=== PATIENT | female | born 1945 | race Caucasian/White ===

== ENCOUNTER 2017-11-13 10:33 | Inpatient (IN) | payer MEDICARE ==
[~2017-11-13] VITALS: Ht 165.1 cm; Wt 61.7 kg
[~2017-11-13 10:33] MED LIST: AMITRIPTYLINE H25 MG PO; ASPIRIN; ATIVAN0.5 MG PO; B COMPLEX1 TA1; BENZAMYCIN 5%-31 GEL; BENZTROPINE ME0.5 MG; BIOTENE DRY MOU DE; BIOTENE MOIST44.3 ML PO; CAFFEINE; CALCIUM CARBON500 M1 PO; CAP Z1 CRE; CAP Z1 CRE T; CARDIZEM30 MG PO; CEPHULAC10 GM/15 M PO; CHROMIUM GTF200 MCG PO; CHROMIUM200 MCG PO; CIPROFLOXACIN500 MG PO; COGENTIN0.5 MG PO; COLACE100 MG PO; CONSTULOSE10 GM/151 PO; COUMADIN3 M1 PO; COUMADIN4 M2 PO; Coumadin2 MG PO; Coumadin2.5 MG PO; Coumadin3 MG PO; ELAVIL25 MG PO; ERYTHROMYCIN; ESIDRIX25 MG PO; FANAPT2 MG PO; FLONASE0.05 MG/AC; HYDR12.5C; HYDROCHLOROTH12.5 MG; KLOR-CON SPRIN10 MEQ PO; KLOR-CON SPRINK8 MEQ PO; KLOR-CON/EF25 MEQ PO; LANOXIN0.125 MG PO; LANOXIN0.25 MG PO; LIDODERM 5% PATC1 EA PO; LISINOPRIL20 MG PO; LOPRESSOR100 MG PO; LOTREL 5 MG-101 CAP; MAALOX; MAALOX 225 MG/150 ML PO; MAALOX1 TAB; MAPAP325 MG PO; METOPROLOL SR50 MG PO; METOPROLOL TART50 M1 PO; METOPROLOL25 MG PO; MICRO-K 1010 MEQ PO; MIRALAX POWDER17 G1 PO; MIRAPEX ER0.375 MG PO; MIRAPEX PO; MIRAPEX0.125 MG PO; MIRAPEX0.25 MG PO; MUCINEX600 MG PO; MULTIPLE VITAMI1 TA2; MULTIVITAMIN &1 TAB PO; NEURONTIN300 MG; PHENERGAN25 M3 PO; PRADAXA150 MG PO; PROPAFENONE HC225 MG PO; QUETIAPINE FUMA50 M1 PO; THERA TABS1 TAB PO; TOPROL XL50 MG PO; TUMS 500500 MG PO; TYLEN; TYLENOL500 MG PO; VALIUM5 MG PO; VANQUISH PO; VITAMIN C1 TAB; VITAMIN D34000 UNIT PO; VITAMIN D5000 I3 PO; ZOFRAN ODT4 MG SL; [UNRECOGNIZED DRUG - OTHER] PO
[2017-11-13 10:39] VITALS: BP 126/66
[2017-11-13] MEDS ORDERED: DIGITEK250 MCG PO (10:49)
[2017-11-13] MEDS ORDERED: COUMADIN0.5 MG PO (10:49)
[2017-11-13] MEDS ORDERED: DIGOX125 MCG PO (10:50)
[2017-11-13] MEDS ORDERED: JANUVIA50 MG PO (10:51)
[2017-11-13] MEDS ORDERED: MELATONIN3 MG PO (10:52)
[2017-11-13] MEDS ORDERED: TOPROL XL25 MG PO (10:53)
[2017-11-13 11:05] LABS: BASO # 0.1 10*3/uL (0.0-0.1); BASO % 0.5 % (0.0-1.0); EOS % 0.2 % (1.0-4.0); HEMATOCRIT 40.7 % (37.0-47.0); HEMOGLOBIN 12.9 g/dl (12.0-16.0); LYMPH # 1.2 10*3/uL (1.3-4.4); LYMPH % 12.6 % (27.0-41.0); MEAN CORPUSCULAR HGB 28.5 pg (27.0-31.0); MEAN CORPUSCULAR HGB CONC 31.7 g/dl (33.0-37.0); MONO # 0.8 10*3/uL (0.1-1.0); MONO % 7.9 % (3.0-9.0); NEUT # 7.5 10*3/uL (2.3-7.9); NEUT % 78.3 % (47.0-73.0); PLATELET COUNT AUTOMATED 253 10*3/uL (130-400); RED BLOOD COUNT 4.52 10*6/uL (4.10-5.10); RED CELL DISTRI WIDTH 15.8 % (0-14.5); WHITE BLOOD COUNT 9.5 10*3/uL (4.8-10.8)
[2017-11-13 11:19] LABS: ALBUMIN 3.2 gm/dl (3.1-4.5); ALKALINE PHOSPHATASE 72 U/L (45-117); BUN 12 mg/dl (7-24); CHLORIDE 101 mmol/L (98-107); CREATININE 0.65 mg/dL (0.55-1.02); POTASSIUM 3.8 mmol/L (3.5-5.1); SGOT/AST 65 IU/L (3-35); SGPT/ALT 62 U/L (12-78); SODIUM 137 mmol/L (136-145)
[2017-11-13] MEDS ORDERED: MILK OF MA400 MG/51 PO (11:32)
[2017-11-13] MEDS ORDERED: MIRALAX119 GM PO (11:34)
[2017-11-13] MEDS ORDERED: MIRAPEX0.125 M1 PO (11:34)
[2017-11-13] MEDS ORDERED: NYSTATIN CREAM15 GM T (11:35)
[2017-11-13] MEDS ORDERED: POTASSIUM CHLO20 MEQ PO (11:35)
[2017-11-13] MEDS ORDERED: MULTIVITAMINS1 EAC5 PO (11:35)
[2017-11-13] MEDS ORDERED: TYLENOL325 M1 PO (11:36)
[2017-11-13] MEDS ORDERED: SEROQUEL25 MG PO (11:36)
[2017-11-13] MEDS ORDERED: VITAMIN D35000 UNIT PO (11:37)
[2017-11-13] MEDS ORDERED: ZYRTEC10 MG PO (11:37)
[2017-11-13 12:02] LABS: BILIRUBIN NEGATIVE (NEGATIVE); BLOOD 3+ (NEGATIVE); CLARITY CLOUDY (CLEAR); COLOR RED (YELLOW); GLUCOSE NEGATIVE (NEGATIVE); KETONE NEGATIVE (NEGATIVE); LEUKO ESTERASE 1+ (NEGATIVE); NITRITE NEGATIVE (NEGATIVE); PH 5.5 (5.0-9.0); UROBILINOGEN 0.2 E.U./dl (0.2-1.0)
[2017-11-13 12:10] VITALS: BP 120/60
[2017-11-13 12:24] LABS: BACTERIA 2+; RBC TNTC rbc/hpf (0-2); WBC TNTC wbc/hpf (0-5)
[2017-11-13 14:00] VITALS: BP 119/77
[2017-11-13 14:26] VITALS: BP 122/80
[2017-11-13 15:16] LABS: ACT PARTIAL THROMBO TIME 30.6 SECONDS (20.8-31.5); INTERNATIONAL NORM RATIO 1.9 (2.0-3.5)
[2017-11-13 16:00] VITALS: BP 106/83
[2017-11-13 20:00] VITALS: BP 146/89
[2017-11-14] VITALS: BP 117/68
[2017-11-14 06:01] LABS: BASO % 0.6 % (0.0-1.0); EOS # 0.1 10*3/uL (0.0-0.4); EOS % 0.8 % (1.0-4.0); HEMATOCRIT 37.8 % (37.0-47.0); HEMOGLOBIN 11.6 g/dl (12.0-16.0); LYMPH # 1.9 10*3/uL (1.3-4.4); LYMPH % 28.2 % (27.0-41.0); MEAN CORPUSCULAR HGB 28.8 pg (27.0-31.0); MEAN CORPUSCULAR HGB CONC 30.7 g/dl (33.0-37.0); MEAN PLATELET VOLUME 11.5 fl (9.6-12.3); MONO # 0.9 10*3/uL (0.1-1.0); MONO % 13.5 % (3.0-9.0); NEUT # 3.7 10*3/uL (2.3-7.9); NEUT % 56.3 % (47.0-73.0); PLATELET COUNT AUTOMATED 215 10*3/uL (130-400); RED BLOOD COUNT 4.03 10*6/uL (4.10-5.10); RED CELL DISTRI WIDTH 15.6 % (0-14.5); WHITE BLOOD COUNT 6.6 10*3/uL (4.8-10.8)
[2017-11-14 06:02] LABS: ALBUMIN 2.7 gm/dl (3.1-4.5); ALKALINE PHOSPHATASE 64 U/L (45-117); BUN 11 mg/dl (7-24); CHLORIDE 104 mmol/L (98-107); CHOLESTEROL 208 mg/dL (<200); CREATININE 0.54 mg/dL (0.55-1.02); HDL CHOLESTEROL 32 mg/dl (40-60); LDL CHOLESTEROL 109 mg/dL (9-159); PHOSPHOROUS 2.9 mg/dL (2.5-4.9); POTASSIUM 3.3 mmol/L (3.5-5.1); SGOT/AST 65 IU/L (3-35); SGPT/ALT 54 U/L (12-78); SODIUM 141 mmol/L (136-145); TOTAL PROTEIN 6.7 gm/dL (6.4-8.2); TRIGLYCERIDES 334 mg/dl (<150); VLDL CHOLESTEROL 67 mg/dL (6-40)
[2017-11-14 06:03] LABS: MEAN CELL VOLUME 93.8 fl (81.0-99.0)
[2017-11-14 06:12] LABS: INTERNATIONAL NORM RATIO 1.6 (2.0-3.5)
[2017-11-14 06:15] LABS: DIGOXIN 0.67 ng/ml (0.8-2.0); FREE T4 1.05 ng/dl (0.76-1.46); THYROID STIM HORMONE (HS) 0.948 uIU/ml (0.358-4.75)
[2017-11-14 08:00] VITALS: BP 119/57
[2017-11-14 08:47] LABS: VITAMIN D, 25-HYDROXY 36.5 ng/mL (30-100)
[2017-11-14 12:00] VITALS: BP 122/60
[2017-11-14 16:00] VITALS: BP 106/50
[2017-11-14 20:00] VITALS: BP 104/63
[2017-11-15] VITALS (7 sets, daily range): BP systolic 106–152; BP diastolic 65–95
[2017-11-15 06:24] LABS: BASO % 0.4 % (0.0-1.0); EOS # 0.1 10*3/uL (0.0-0.4); EOS % 1.3 % (1.0-4.0); HEMATOCRIT 37.8 % (37.0-47.0); HEMOGLOBIN 11.8 g/dl (12.0-16.0); LYMPH # 2.6 10*3/uL (1.3-4.4); LYMPH % 28.8 % (27.0-41.0); MEAN CELL VOLUME 93.1 fl (81.0-99.0); MEAN CORPUSCULAR HGB 29.1 pg (27.0-31.0); MEAN CORPUSCULAR HGB CONC 31.2 g/dl (33.0-37.0); MEAN PLATELET VOLUME 11.2 fl (9.6-12.3); MONO # 0.7 10*3/uL (0.1-1.0); MONO % 7.3 % (3.0-9.0); NEUT # 5.5 10*3/uL (2.3-7.9); NEUT % 61.9 % (47.0-73.0); PLATELET COUNT AUTOMATED 235 10*3/uL (130-400); RED BLOOD COUNT 4.06 10*6/uL (4.10-5.10); RED CELL DISTRI WIDTH 15.6 % (0-14.5); WHITE BLOOD COUNT 8.9 10*3/uL (4.8-10.8)
[2017-11-15 06:30] LABS: ALBUMIN 2.8 gm/dl (3.1-4.5); ALKALINE PHOSPHATASE 65 U/L (45-117); BUN 9 mg/dl (7-24); CHLORIDE 106 mmol/L (98-107); CREATININE 0.47 mg/dL (0.55-1.02); POTASSIUM 3.5 mmol/L (3.5-5.1); SGOT/AST 58 IU/L (3-35); SGPT/ALT 54 U/L (12-78); SODIUM 142 mmol/L (136-145); TOTAL PROTEIN 6.9 gm/dL (6.4-8.2)
[2017-11-15 06:34] LABS: TROPONIN I 0.122 ng/ml (<0.045)
[2017-11-16] VITALS: BP 145/72
[2017-11-16] MEDS ORDERED: BENGAY VANISHIN57 GM T (02:11)
[2017-11-16] MEDS ORDERED: CALCIUM500 M1 PO (02:12)
[2017-11-16] MEDS ORDERED: LACTULOSE20 GM/30 M PO (02:16)
[2017-11-16] MEDS ORDERED: METOPROLOL25 MG PO (02:19)
[2017-11-16] MEDS ORDERED: MIRALAX POWDER17 G1 PO (02:20)
[2017-11-16 07:42] LABS: BASO % 0.3 % (0.0-1.0); EOS # 0.1 10*3/uL (0.0-0.4); EOS % 1.5 % (1.0-4.0); HEMATOCRIT 37.5 % (37.0-47.0); HEMOGLOBIN 11.5 g/dl (12.0-16.0); LYMPH # 2.1 10*3/uL (1.3-4.4); LYMPH % 21.4 % (27.0-41.0); MEAN CELL VOLUME 92.4 fl (81.0-99.0); MEAN CORPUSCULAR HGB 28.3 pg (27.0-31.0); MEAN CORPUSCULAR HGB CONC 30.7 g/dl (33.0-37.0); MEAN PLATELET VOLUME 11.9 fl (9.6-12.3); MONO # 0.7 10*3/uL (0.1-1.0); MONO % 6.8 % (3.0-9.0); NEUT # 6.7 10*3/uL (2.3-7.9); NEUT % 69.7 % (47.0-73.0); PLATELET COUNT AUTOMATED 255 10*3/uL (130-400); RED BLOOD COUNT 4.06 10*6/uL (4.10-5.10); RED CELL DISTRI WIDTH 15.6 % (0-14.5); WHITE BLOOD COUNT 9.6 10*3/uL (4.8-10.8)
[2017-11-16 07:46] LABS: INTERNATIONAL NORM RATIO 2.1 (2.0-3.5)
[2017-11-16 08:00] VITALS: BP 144/53
[2017-11-16 08:12] LABS: ALBUMIN 2.7 gm/dl (3.1-4.5); ALKALINE PHOSPHATASE 66 U/L (45-117); BUN 6 mg/dl (7-24); CHLORIDE 106 mmol/L (98-107); CREATININE 0.42 mg/dL (0.55-1.02); POTASSIUM 3.4 mmol/L (3.5-5.1); SGOT/AST 55 IU/L (3-35); SGPT/ALT 51 U/L (12-78); SODIUM 143 mmol/L (136-145); TOTAL PROTEIN 6.7 gm/dL (6.4-8.2)
[2017-11-16 12:00] VITALS: BP 115/57
[2017-11-16 16:00] VITALS: BP 132/74
[2017-11-16 20:00] VITALS: BP 142/65
[2017-11-17] VITALS: BP 137/83
[2017-11-17 07:17] LABS: INTERNATIONAL NORM RATIO 3.4 (2.0-3.5)
[2017-11-17 08:00] VITALS: BP 139/59
[2017-11-17 12:00] VITALS: BP 120/52
[2017-11-17] MEDS ORDERED: TOPROL XL50 M1 PO (12:27)
[2017-11-17] MEDS ORDERED: TAMIFLU 75MG CA75 MG PO (12:27)
[2017-11-17] MEDS ORDERED: COUMADIN7.5 M1 PO (12:27)
[2017-11-17 16:00] VITALS: BP 132/88
== END 2017-11-17 16:35 | disposition other institution (70) | DRG 871 ==
LOC: ED 10:33 → 5E 13:26 → EDHOLD 13:26 → 5E 13:39
PROVIDERS: Emergency Medicine; Family Medicine; Internal Medicine; Registered Nurse; Student in an Organized Health Care Education/Training Program
DX: A41.9 Sepsis, unspecified organism (principal); E43 Unspecified severe protein-calorie malnutrition; I48.2 Chronic atrial fibrillation; G20 Parkinson's disease; F02.80 Dementia in other diseases classified elsewhere, unspecified severity, without behavioral disturbance, psychotic disturbance, mood disturbance, and anxiety; N30.01 Acute cystitis with hematuria; R65.20 Severe sepsis without septic shock; J10.1 Influenza due to other identified influenza virus with other respiratory manifestations; R73.9 Hyperglycemia, unspecified; E87.6 Hypokalemia; M19.90 Unspecified osteoarthritis, unspecified site; D72.810 Lymphocytopenia; M25.562 Pain in left knee; M25.561 Pain in right knee; G89.29 Other chronic pain; M54.9 Dorsalgia, unspecified; E78.1 Pure hyperglyceridemia; B95.2 Enterococcus as the cause of diseases classified elsewhere; E78.00 Pure hypercholesterolemia, unspecified; Z82.49 Family history of ischemic heart disease and other diseases of the circulatory system; Z84.1 Family history of disorders of kidney and ureter; Z88.6 Allergy status to analgesic agent; Z88.1 Allergy status to other antibiotic agents; Z88.2 Allergy status to sulfonamides; Z88.8 Allergy status to other drugs, medicaments and biological substances; Z79.899 Other long term (current) drug therapy; Z80.9 Family history of malignant neoplasm, unspecified; Z87.891 Personal history of nicotine dependence; Z79.01 Long term (current) use of anticoagulants; Z87.19 Personal history of other diseases of the digestive system; Z68.22 Body mass index [BMI] 22.0-22.9, adult

== ENCOUNTER 2018-02-09 16:26 | Inpatient (IN) | payer MEDICARE ==
[~2018-02-09] VITALS: Ht 149.8 cm; Wt 61.8 kg
[~2018-02-09 16:26] MED LIST changes: +BENGAY VANISHIN57 GM T; +CALCIUM500 M1 PO; +COUMADIN0.5 MG PO; +COUMADIN7.5 M1 PO; +DIGITEK250 MCG PO; +DIGOX125 MCG PO; +JANUVIA50 MG PO; +LACTULOSE20 GM/30 M PO; +MELATONIN3 MG PO; +MILK OF MA400 MG/51 PO; +MIRALAX119 GM PO; +MIRAPEX0.125 M1 PO; +MULTIVITAMINS1 EAC5 PO; +NYSTATIN CREAM15 GM T; +POTASSIUM CHLO20 MEQ PO; +SEROQUEL25 MG PO; +TAMIFLU 75MG CA75 MG PO; +TOPROL XL25 MG PO; +TOPROL XL50 M1 PO; +TYLENOL325 M1 PO; +VITAMIN D35000 UNIT PO; +ZYRTEC10 MG PO
[2018-02-09 16:29] VITALS: BP 116/80
[2018-02-09 17:17] LABS: BASO # 0.1 10*3/uL (0.0-0.1); BASO % 0.4 % (0.0-1.0); EOS # 0.1 10*3/uL (0.0-0.4); EOS % 0.5 % (1.0-4.0); HEMATOCRIT 42.4 % (37.0-47.0); HEMOGLOBIN 13.2 g/dl (12.0-16.0); LYMPH # 2.5 10*3/uL (1.3-4.4); LYMPH % 12.3 % (27.0-41.0); MEAN CELL VOLUME 90.2 fl (81.0-99.0); MEAN CORPUSCULAR HGB 28.1 pg (27.0-31.0); MEAN CORPUSCULAR HGB CONC 31.1 g/dl (33.0-37.0); MEAN PLATELET VOLUME 11.3 fl (9.6-12.3); MONO # 1.4 10*3/uL (0.1-1.0); MONO % 6.7 % (3.0-9.0); NEUT # 16.1 10*3/uL (2.3-7.9); NEUT % 79.6 % (47.0-73.0); PLATELET COUNT AUTOMATED 306 10*3/uL (130-400); RED CELL DISTRI WIDTH 15.8 % (0-14.5); WHITE BLOOD COUNT 20.3 10*3/uL (4.8-10.8)
[2018-02-09 17:26] LABS: ACT PARTIAL THROMBO TIME 25.6 SECONDS (20.8-31.5); INTERNATIONAL NORM RATIO 1.7 (2.0-3.5)
[2018-02-09 17:39] LABS: ALBUMIN 3.2 gm/dl (3.1-4.5); ALKALINE PHOSPHATASE 75 U/L (45-117); BUN 11 mg/dl (7-24); CHLORIDE 106 mmol/L (98-107); CREATININE 0.63 mg/dL (0.55-1.02); SGOT/AST 32 IU/L (3-35); SGPT/ALT 37 U/L (12-78); SODIUM 140 mmol/L (136-145); TOTAL PROTEIN 7.6 gm/dL (6.4-8.2)
[2018-02-09 17:53] LABS: TROPONIN I 0.033 ng/ml (<0.045)
[2018-02-09 17:55] LABS: BILIRUBIN NEGATIVE (NEGATIVE); BLOOD TRACE-INTACT (NEGATIVE); CLARITY CLEAR (CLEAR); COLOR YELLOW (YELLOW); GLUCOSE NEGATIVE (NEGATIVE); KETONE TRACE (NEGATIVE); LEUKO ESTERASE 1+ (NEGATIVE); NITRITE NEGATIVE (NEGATIVE); PH 5.5 (5.0-9.0); SPECIFIC GRAVITY 1.025 (1.005-1.030); UROBILINOGEN 0.2 E.U./dl (0.2-1.0)
[2018-02-09 18:02] LABS: BACTERIA 1+; EPITHELIAL CELLS 0-2; WBC 31-40 wbc/hpf (0-5)
[2018-02-09 18:15] VITALS: BP 108/80
[2018-02-09 20:15] VITALS: BP 114/58
[2018-02-09] MEDS ORDERED: TUMS200 MG PO (20:42)
[2018-02-09] MEDS ORDERED: COUMADIN3 M1 PO (20:53)
[2018-02-10] VITALS: BP 106/52
[2018-02-10 06:34] LABS: BASO # 0.1 10*3/uL (0.0-0.1); BASO % 0.3 % (0.0-1.0); EOS % 0.1 % (1.0-4.0); HEMATOCRIT 41.3 % (37.0-47.0); HEMOGLOBIN 12.6 g/dl (12.0-16.0); LYMPH % 9.5 % (27.0-41.0); MEAN CORPUSCULAR HGB 27.8 pg (27.0-31.0); MEAN CORPUSCULAR HGB CONC 30.5 g/dl (33.0-37.0); MEAN PLATELET VOLUME 11.8 fl (9.6-12.3); MONO # 1.2 10*3/uL (0.1-1.0); MONO % 5.6 % (3.0-9.0); NEUT # 17.9 10*3/uL (2.3-7.9); NEUT % 84.1 % (47.0-73.0); PLATELET COUNT AUTOMATED 298 10*3/uL (130-400); RED BLOOD COUNT 4.54 10*6/uL (4.10-5.10); RED CELL DISTRI WIDTH 15.7 % (0-14.5); WHITE BLOOD COUNT 21.3 10*3/uL (4.8-10.8)
[2018-02-10 07:02] LABS: INTERNATIONAL NORM RATIO 1.5 (2.0-3.5)
[2018-02-10 07:03] LABS: ALBUMIN 2.9 gm/dl (3.1-4.5); ALKALINE PHOSPHATASE 69 U/L (45-117); BUN 8 mg/dl (7-24); CHLORIDE 108 mmol/L (98-107); CHOLESTEROL 205 mg/dL (<200); CREATININE 0.51 mg/dL (0.55-1.02); FREE T4 1.09 ng/dl (0.76-1.46); HDL CHOLESTEROL 34 mg/dl (40-60); LDL CHOLESTEROL 136 mg/dL (9-159); PHOSPHOROUS 2.1 mg/dL (2.5-4.9); POTASSIUM 3.4 mmol/L (3.5-5.1); SGOT/AST 23 IU/L (3-35); SGPT/ALT 30 U/L (12-78); SODIUM 142 mmol/L (136-145); TOTAL PROTEIN 7.3 gm/dL (6.4-8.2); TRIGLYCERIDES 177 mg/dl (<150); VLDL CHOLESTEROL 35 mg/dL (6-40)
[2018-02-10 07:08] LABS: THYROID STIM HORMONE (HS) 0.517 uIU/ml (0.358-4.75)
[2018-02-10 08:00] VITALS: BP 126/72
[2018-02-10 12:00] VITALS: BP 98/50
[2018-02-10 16:00] VITALS: BP 106/55
[2018-02-10 20:00] VITALS: BP 92/60
[2018-02-11] VITALS: BP 125/61
[2018-02-11 07:42] LABS: BASO # 0.1 10*3/uL (0.0-0.1); BASO % 0.5 % (0.0-1.0); EOS # 0.4 10*3/uL (0.0-0.4); EOS % 2.2 % (1.0-4.0); LYMPH # 2.6 10*3/uL (1.3-4.4); LYMPH % 15.9 % (27.0-41.0); MEAN CELL VOLUME 92.3 fl (81.0-99.0); MEAN CORPUSCULAR HGB 27.9 pg (27.0-31.0); MEAN CORPUSCULAR HGB CONC 30.2 g/dl (33.0-37.0); MEAN PLATELET VOLUME 11.3 fl (9.6-12.3); MONO # 0.8 10*3/uL (0.1-1.0); NEUT # 12.3 10*3/uL (2.3-7.9); PLATELET COUNT AUTOMATED 227 10*3/uL (130-400); RED BLOOD COUNT 3.77 10*6/uL (4.10-5.10); RED CELL DISTRI WIDTH 15.8 % (0-14.5); WHITE BLOOD COUNT 16.1 10*3/uL (4.8-10.8)
[2018-02-11 07:48] LABS: HEMATOCRIT 34.8 % (37.0-47.0); HEMOGLOBIN 10.5 g/dl (12.0-16.0)
[2018-02-11 07:57] LABS: ALBUMIN 2.5 gm/dl (3.1-4.5); ALKALINE PHOSPHATASE 62 U/L (45-117); BUN 7 mg/dl (7-24); CHLORIDE 110 mmol/L (98-107); CREATININE 0.47 mg/dL (0.55-1.02); POTASSIUM 3.6 mmol/L (3.5-5.1); SGOT/AST 26 IU/L (3-35); SGPT/ALT 26 U/L (12-78); SODIUM 141 mmol/L (136-145); TOTAL PROTEIN 6.4 gm/dL (6.4-8.2)
[2018-02-11 08:00] VITALS: BP 128/54
[2018-02-11 08:09] LABS: INTERNATIONAL NORM RATIO 1.6 (2.0-3.5)
[2018-02-11 12:00] VITALS: BP 128/64
[2018-02-11] MEDS ORDERED: COUMADIN4 M2 PO (13:28)
== END 2018-02-11 16:24 | DRG 872 ==
LOC: ED 16:26 → EDHOLD 17:55 → 4E 17:55
PROVIDERS: Emergency Medicine; Internal Medicine
DX: A41.9 Sepsis, unspecified organism (principal); E87.2 Acidosis; E87.8 Other disorders of electrolyte and fluid balance, not elsewhere classified; E83.39 Other disorders of phosphorus metabolism; I48.2 Chronic atrial fibrillation; N39.0 Urinary tract infection, site not specified; F02.80 Dementia in other diseases classified elsewhere, unspecified severity, without behavioral disturbance, psychotic disturbance, mood disturbance, and anxiety; E87.6 Hypokalemia; G31.83 Neurocognitive disorder with Lewy bodies; D72.821 Monocytosis (symptomatic); M15.9 Polyosteoarthritis, unspecified; E78.1 Pure hyperglyceridemia; E78.00 Pure hypercholesterolemia, unspecified; Z66 Do not resuscitate; Z51.5 Encounter for palliative care; H26.9 Unspecified cataract; E66.3 Overweight; R73.9 Hyperglycemia, unspecified; R65.20 Severe sepsis without septic shock; Z79.899 Other long term (current) drug therapy; Z79.01 Long term (current) use of anticoagulants; Z88.1 Allergy status to other antibiotic agents; Z88.2 Allergy status to sulfonamides; Z88.8 Allergy status to other drugs, medicaments and biological substances; Z82.49 Family history of ischemic heart disease and other diseases of the circulatory system; Z80.51 Family history of malignant neoplasm of kidney; Z80.9 Family history of malignant neoplasm, unspecified; Z87.19 Personal history of other diseases of the digestive system; Z68.27 Body mass index [BMI] 27.0-27.9, adult

== ENCOUNTER 2018-09-15 12:42 | Inpatient (IN) | payer MEDICARE ==
[~2018-09-15] VITALS: Ht 165.1 cm; Wt 57.6 kg
--- NOTE | ~2018-09-15 | EKG ---
[place], [place] ELECTROCARDIOGRAM REPORT NAME: JULIANA MAHER UNIT #: [id number] ROOM: 522 DOCTOR: MILES DRAFT REPORT BIRTHDATE: [birth year] [facility] Test Date: 2018-09-15 Test Time: 14:07:07 Pat Name: JULIANA MAHER Department: Room: 522 Gender: F Electroplating Laborer: : 1945 Requested By: CHAYA CAROLINA Order Number: [id number] Reading MD: Jaron Hicks MD Measurements Intervals [place] Rate: 91 P: NC: QRS: -10 QRSD: 86 T: -83 QT: 361 QTc: 445 Interpretive Statements Atrial fibrillation Nonspecific repol abnormality, diffuse leads No previous ECG available for comparison Electronically Signed On 09-16-2018 16:39:01 PST by Jaron Hicks MD CM:EKGRPT:ELECTROCARDIOGRAM REPORT [id number] CHAYA AQUINO DRAFT REPORT CHAYA CAROLINA MD
[2018-09-15 12:42] VITALS: BP 134/56
[~2018-09-15 12:42] MED LIST changes: +TUMS200 MG PO
[2018-09-15 13:27] LABS: BASO # 0.1 10*3/uL (0.0-0.1); BASO % 0.5 % (0.0-1.0); EOS # 0.3 10*3/uL (0.0-0.4); EOS % 1.8 % (1.0-4.0); HEMATOCRIT 46.3 % (37.0-47.0); HEMOGLOBIN 14.3 g/dl (12.0-16.0); LYMPH # 1.3 10*3/uL (1.3-4.4); MEAN CELL VOLUME 92.8 fl (81.0-99.0); MEAN CORPUSCULAR HGB 28.7 pg (27.0-31.0); MEAN CORPUSCULAR HGB CONC 30.9 g/dl (33.0-37.0); MEAN PLATELET VOLUME 11.4 fl (9.6-12.3); MONO # 0.6 10*3/uL (0.1-1.0); MONO % 4.1 % (3.0-9.0); NEUT # 11.7 10*3/uL (2.3-7.9); NEUT % 84.1 % (47.0-73.0); PLATELET COUNT AUTOMATED 311 10*3/uL (130-400); RED BLOOD COUNT 4.99 10*6/uL (4.10-5.10); RED CELL DISTRI WIDTH 15.2 % (0-14.5); WHITE BLOOD COUNT 13.9 10*3/uL (4.8-10.8)
[2018-09-15 13:45] LABS: ALBUMIN 3.5 gm/dl (3.1-4.5); BUN 13 mg/dl (7-24); CHLORIDE 103 mmol/L (98-107); CREATININE 0.63 mg/dL (0.55-1.02); POTASSIUM 4.3 mmol/L (3.5-5.1); SGOT/AST 22 IU/L (3-35); SGPT/ALT 30 U/L (12-78); SODIUM 139 mmol/L (136-145); TOTAL PROTEIN 8.3 gm/dL (6.4-8.2)
[2018-09-15 13:46] LABS: ALKALINE PHOSPHATASE 88 U/L (45-117)
[2018-09-15 14:45] LABS: BILIRUBIN NEGATIVE (NEGATIVE); BLOOD 3+ (NEGATIVE); CLARITY CLOUDY (CLEAR); COLOR YELLOW (YELLOW); GLUCOSE NEGATIVE (NEGATIVE); KETONE NEGATIVE (NEGATIVE); LEUKO ESTERASE 3+ (NEGATIVE); NITRITE POSITIVE (NEGATIVE); SPECIFIC GRAVITY 1.015 (1.005-1.030); UROBILINOGEN 0.2 E.U./dl (0.2-1.0)
[2018-09-15 14:52] LABS: WBC TNTC wbc/hpf (0-5)
[2018-09-15 16:27] VITALS: BP 109/60
[2018-09-15 16:37] LABS: INTERNATIONAL NORM RATIO 1.8 (2.0-3.5)
[2018-09-15 17:05] VITALS: BP 128/61
[2018-09-15 20:00] VITALS: BP 121/82
[2018-09-16] VITALS: BP 154/79
[2018-09-16 07:13] LABS: BASO # 0.1 10*3/uL (0.0-0.1); BASO % 0.7 % (0.0-1.0); EOS # 0.2 10*3/uL (0.0-0.4); EOS % 1.7 % (1.0-4.0); HEMATOCRIT 41.1 % (37.0-47.0); HEMOGLOBIN 12.7 g/dl (12.0-16.0); LYMPH # 1.2 10*3/uL (1.3-4.4); LYMPH % 11.2 % (27.0-41.0); MEAN CORPUSCULAR HGB 28.7 pg (27.0-31.0); MEAN CORPUSCULAR HGB CONC 30.9 g/dl (33.0-37.0); MEAN PLATELET VOLUME 12.3 fl (9.6-12.3); MONO # 0.8 10*3/uL (0.1-1.0); NEUT # 8.6 10*3/uL (2.3-7.9); NEUT % 78.9 % (47.0-73.0); PLATELET COUNT AUTOMATED 258 10*3/uL (130-400); RED BLOOD COUNT 4.42 10*6/uL (4.10-5.10); RED CELL DISTRI WIDTH 15.4 % (0-14.5); WHITE BLOOD COUNT 10.9 10*3/uL (4.8-10.8)
[2018-09-16 07:41] LABS: BUN 10 mg/dl (7-24); CHLORIDE 105 mmol/L (98-107); CREATININE 0.55 mg/dL (0.55-1.02); PHOSPHOROUS 2.9 mg/dL (2.5-4.9); POTASSIUM 3.8 mmol/L (3.5-5.1); SODIUM 139 mmol/L (136-145)
[2018-09-16 07:51] LABS: FREE T4 0.99 ng/dl (0.76-1.46); THYROID STIM HORMONE (HS) 0.684 uIU/ml (0.358-4.75)
[2018-09-16 08:00] VITALS: BP 126/68
[2018-09-16 11:43] VITALS: BP 128/64
[2018-09-16 12:00] VITALS: BP 132/70
[2018-09-16 16:00] VITALS: BP 145/86
[2018-09-16 20:00] VITALS: BP 135/74
[2018-09-17] VITALS: BP 150/51
[2018-09-17 07:34] LABS: BASO # 0.1 10*3/uL (0.0-0.1); BASO % 0.6 % (0.0-1.0); EOS # 0.3 10*3/uL (0.0-0.4); HEMATOCRIT 39.4 % (37.0-47.0); HEMOGLOBIN 12.4 g/dl (12.0-16.0); LYMPH # 1.6 10*3/uL (1.3-4.4); LYMPH % 11.8 % (27.0-41.0); MEAN CELL VOLUME 92.1 fl (81.0-99.0); MEAN CORPUSCULAR HGB CONC 31.5 g/dl (33.0-37.0); MEAN PLATELET VOLUME 12.1 fl (9.6-12.3); MONO # 1.1 10*3/uL (0.1-1.0); MONO % 7.9 % (3.0-9.0); NEUT # 10.3 10*3/uL (2.3-7.9); NEUT % 77.2 % (47.0-73.0); PLATELET COUNT AUTOMATED 234 10*3/uL (130-400); RED BLOOD COUNT 4.28 10*6/uL (4.10-5.10); RED CELL DISTRI WIDTH 15.5 % (0-14.5); WHITE BLOOD COUNT 13.3 10*3/uL (4.8-10.8)
[2018-09-17 07:48] LABS: ALBUMIN 2.8 gm/dl (3.1-4.5); ALKALINE PHOSPHATASE 68 U/L (45-117); BUN 7 mg/dl (7-24); CHLORIDE 109 mmol/L (98-107); POTASSIUM 3.7 mmol/L (3.5-5.1); SGOT/AST 38 IU/L (3-35); SGPT/ALT 33 U/L (12-78); SODIUM 140 mmol/L (136-145)
[2018-09-17 08:11] LABS: INTERNATIONAL NORM RATIO 1.3 (2.0-3.5)
[2018-09-17 12:00] VITALS: BP 135/66
[2018-09-17 16:00] VITALS: BP 160/84
[2018-09-17 20:00] VITALS: BP 156/80
[2018-09-18] VITALS: BP 160/91
[2018-09-18 07:11] LABS: BASO # 0.1 10*3/uL (0.0-0.1); BASO % 0.5 % (0.0-1.0); EOS # 0.6 10*3/uL (0.0-0.4); EOS % 5.1 % (1.0-4.0); HEMATOCRIT 39.1 % (37.0-47.0); HEMOGLOBIN 11.8 g/dl (12.0-16.0); LYMPH # 2.6 10*3/uL (1.3-4.4); LYMPH % 23.8 % (27.0-41.0); MEAN CELL VOLUME 93.1 fl (81.0-99.0); MEAN CORPUSCULAR HGB 28.1 pg (27.0-31.0); MEAN CORPUSCULAR HGB CONC 30.2 g/dl (33.0-37.0); MEAN PLATELET VOLUME 12.1 fl (9.6-12.3); MONO # 1.1 10*3/uL (0.1-1.0); NEUT # 6.6 10*3/uL (2.3-7.9); NEUT % 60.3 % (47.0-73.0); PLATELET COUNT AUTOMATED 232 10*3/uL (130-400); RED CELL DISTRI WIDTH 15.4 % (0-14.5); WHITE BLOOD COUNT 10.9 10*3/uL (4.8-10.8)
[2018-09-18 07:21] LABS: BUN 6 mg/dl (7-24); CHLORIDE 111 mmol/L (98-107); CREATININE 0.36 mg/dL (0.55-1.02); POTASSIUM 3.4 mmol/L (3.5-5.1); SODIUM 144 mmol/L (136-145)
[2018-09-18 07:56] LABS: INTERNATIONAL NORM RATIO 1.6 (2.0-3.5)
[2018-09-18 08:00] VITALS: BP 126/62
[2018-09-18 12:00] VITALS: BP 121/60
[2018-09-18 16:00] VITALS: BP 131/77
[2018-09-18 20:00] VITALS: BP 128/82
[2018-09-19] VITALS: BP 135/67
[2018-09-19 07:43] LABS: BASO # 0.1 10*3/uL (0.0-0.1); BASO % 0.6 % (0.0-1.0); EOS # 0.7 10*3/uL (0.0-0.4); EOS % 4.8 % (1.0-4.0); HEMATOCRIT 38.2 % (37.0-47.0); HEMOGLOBIN 12.1 g/dl (12.0-16.0); LYMPH # 2.6 10*3/uL (1.3-4.4); LYMPH % 19.3 % (27.0-41.0); MEAN CELL VOLUME 91.8 fl (81.0-99.0); MEAN CORPUSCULAR HGB 29.1 pg (27.0-31.0); MEAN CORPUSCULAR HGB CONC 31.7 g/dl (33.0-37.0); MEAN PLATELET VOLUME 11.3 fl (9.6-12.3); MONO % 7.3 % (3.0-9.0); NEUT # 9.2 10*3/uL (2.3-7.9); NEUT % 67.6 % (47.0-73.0); PLATELET COUNT AUTOMATED 262 10*3/uL (130-400); RED BLOOD COUNT 4.16 10*6/uL (4.10-5.10); WHITE BLOOD COUNT 13.7 10*3/uL (4.8-10.8)
[2018-09-19 07:55] LABS: BUN 6 mg/dl (7-24); CHLORIDE 109 mmol/L (98-107); POTASSIUM 3.4 mmol/L (3.5-5.1); SODIUM 142 mmol/L (136-145)
[2018-09-19 08:00] VITALS: BP 162/70
[2018-09-19 12:00] VITALS: BP 121/51
[2018-09-19] MEDS ORDERED: COUMADIN5 M2 PO (15:12)
[2018-09-19] MEDS ORDERED: ZYVOX600 MG PO (15:12)
== END 2018-09-19 17:04 | DRG 871 ==
LOC: ED 12:42 → EDHOLD 14:57 → 5E 14:57
PROVIDERS: Emergency Medicine; Family Medicine; Student in an Organized Health Care Education/Training Program
DX: A41.9 Sepsis, unspecified organism (principal); G93.41 Metabolic encephalopathy; F02.81 Dementia in other diseases classified elsewhere, unspecified severity, with behavioral disturbance; N30.00 Acute cystitis without hematuria; G31.83 Neurocognitive disorder with Lewy bodies; R74.8 Abnormal levels of other serum enzymes; F02.80 Dementia in other diseases classified elsewhere, unspecified severity, without behavioral disturbance, psychotic disturbance, mood disturbance, and anxiety; M19.90 Unspecified osteoarthritis, unspecified site; Z66 Do not resuscitate; Z51.5 Encounter for palliative care; I48.91 Unspecified atrial fibrillation; E11.65 Type 2 diabetes mellitus with hyperglycemia; B95.62 Methicillin resistant Staphylococcus aureus infection as the cause of diseases classified elsewhere; E78.1 Pure hyperglyceridemia; R79.1 Abnormal coagulation profile; R65.20 Severe sepsis without septic shock; Z88.4 Allergy status to anesthetic agent; Z88.1 Allergy status to other antibiotic agents; Z88.2 Allergy status to sulfonamides; Z87.440 Personal history of urinary (tract) infections; Z88.8 Allergy status to other drugs, medicaments and biological substances; Z87.442 Personal history of urinary calculi; Z87.891 Personal history of nicotine dependence; Z82.49 Family history of ischemic heart disease and other diseases of the circulatory system; Z84.1 Family history of disorders of kidney and ureter; Z80.9 Family history of malignant neoplasm, unspecified; Z79.899 Other long term (current) drug therapy; Z79.01 Long term (current) use of anticoagulants

== ENCOUNTER 2020-05-15 15:33 | Emergency (ER) | payer MEDICARE ==
[~2020-05-15 15:33] MED LIST changes: +BENGAY GREASELE57 GM T; -BENGAY VANISHIN57 GM T; +COUMADIN5 M2 PO; +METOPROLOL SUCC50 M1 PO; +PAXIL10 MG PO; +RESOURCE 2.0 2237 ML PO; +ZESTRIL10 MG PO; +ZYVOX600 MG PO
[2020-05-15 16:00] LABS: BASO # 0.1 10*3/uL (0.0-0.1); BASO % 0.4 % (0.0-1.0); EOS # 0.3 10*3/uL (0.0-0.4); HEMATOCRIT 40.8 % (37.0-47.0); LYMPH # 1.2 10*3/uL (1.3-4.4); MEAN CELL VOLUME 91.7 fl (81.0-99.0); MEAN CORPUSCULAR HGB 27.9 pg (27.0-31.0); MEAN CORPUSCULAR HGB CONC 30.4 g/dl (33.0-37.0); MEAN PLATELET VOLUME 10.8 fl (9.6-12.3); MONO # 0.6 10*3/uL (0.1-1.0); MONO % 4.1 % (3.0-9.0); NEUT # 11.4 10*3/uL (2.3-7.9); NEUT % 84.2 % (47.0-73.0); PLATELET COUNT AUTOMATED 457 10*3/uL (130-400); RED BLOOD COUNT 4.45 10*6/uL (4.10-5.10); WHITE BLOOD COUNT 13.5 10*3/uL (4.8-10.8)
[2020-05-15 16:11] LABS: ACT PARTIAL THROMBO TIME 33.7 SECONDS (20.0-32.1); INTERNATIONAL NORM RATIO 2.4 (2.0-3.5)
[2020-05-15 16:16] LABS: ALBUMIN 3.1 gm/dl (3.1-4.5); ALKALINE PHOSPHATASE 74 U/L (45-117); BUN 18 mg/dl (7-24); CHLORIDE 107 mmol/L (98-107); CREATININE 0.66 mg/dL (0.55-1.02); POTASSIUM 4.2 mmol/L (3.5-5.1); SGOT/AST 19 IU/L (3-35); SGPT/ALT 24 U/L (12-78); SODIUM 140 mmol/L (136-145); TOTAL PROTEIN 7.8 gm/dL (6.4-8.2)
[2020-05-15 16:17] LABS: TROPONIN I 0.038 ng/ml (<0.045)
== END 2020-05-15 17:47 | disposition home or self-care (01) ==
LOC: ED 15:33
PROVIDERS: Emergency Medicine
DX: R11.2 Nausea with vomiting, unspecified (principal); I48.91 Unspecified atrial fibrillation; E11.9 Type 2 diabetes mellitus without complications; M19.90 Unspecified osteoarthritis, unspecified site; Z79.01 Long term (current) use of anticoagulants; Z88.2 Allergy status to sulfonamides; Z88.1 Allergy status to other antibiotic agents; Z88.8 Allergy status to other drugs, medicaments and biological substances; Z79.899 Other long term (current) drug therapy; Z87.891 Personal history of nicotine dependence

== ENCOUNTER 2020-08-24 11:07 | Emergency (ER) | payer MEDICARE ==
[~2020-08-24] VITALS: Ht 165.1 cm; Wt 40.4 kg
[~2020-08-24 11:07] MED LIST changes: +ANTI MONKEY BU170 GM T; +CARAFATE1 G1 PO; +CEFUROXIME AXE250 MG PO; +DULCOLAX10 M1 R; +METOPROLOL SUC100 M1 PO; +TUSSIN100 MG/51 PO; +ZOFRAN4 MG PO
[2020-08-24 11:41] LABS: BASO # 0.1 10*3/uL (0.0-0.1); BASO % 0.3 % (0.0-1.0); HEMATOCRIT 52.3 % (37.0-47.0); LYMPH # 2.6 10*3/uL (1.3-4.4); LYMPH % 13.4 % (27.0-41.0); MEAN CELL VOLUME 99.2 fl (81.0-99.0); MEAN CORPUSCULAR HGB 28.1 pg (27.0-31.0); MEAN CORPUSCULAR HGB CONC 28.3 g/dl (33.0-37.0); MEAN PLATELET VOLUME 11.9 fl (9.6-12.3); MONO % 5.1 % (3.0-9.0); NEUT # 15.5 10*3/uL (2.3-7.9); NEUT % 80.8 % (47.0-73.0); PLATELET COUNT AUTOMATED 430 10*3/uL (130-400); RED BLOOD COUNT 5.27 10*6/uL (4.10-5.10); RED CELL DISTRI WIDTH 17.2 % (0-14.5); WHITE BLOOD COUNT 19.2 10*3/uL (4.8-10.8)
[2020-08-24 11:53] LABS: ACT PARTIAL THROMBO TIME 28.5 SECONDS (20.0-32.1); INTERNATIONAL NORM RATIO 2.5 (2.0-3.5)
[2020-08-24 11:57] LABS: ALBUMIN 3.7 gm/dl (3.1-4.5); ALKALINE PHOSPHATASE 52 U/L (45-117); BUN 57 mg/dl (7-24); CREATININE 0.89 mg/dL (0.55-1.02); LIPASE 232 U/L (73-393); POTASSIUM 3.4 mmol/L (3.5-5.1); SGOT/AST 48 IU/L (3-35); SGPT/ALT 97 U/L (12-78); SODIUM 160 mmol/L (136-145); TOTAL PROTEIN 7.9 gm/dL (6.4-8.2)
[2020-08-24 12:05] LABS: CHLORIDE 129 mmol/L (98-107)
== END 2020-08-24 13:00 ==
LOC: ED 11:07
PROVIDERS: Family Medicine
DX: E87.0 Hyperosmolality and hypernatremia (principal); Z88.2 Allergy status to sulfonamides; Z88.8 Allergy status to other drugs, medicaments and biological substances; Z88.1 Allergy status to other antibiotic agents; Z79.899 Other long term (current) drug therapy; Z79.01 Long term (current) use of anticoagulants